=== PATIENT | female | born 1970 | race Two or more races ===

== ENCOUNTER 2018-11-21 19:21 | Emergency (ER) | payer MEDICAID ==
[~2018-11-21] VITALS: Ht 165.1 cm; Wt 79.0 kg
[2018-11-21 19:43] VITALS: BP 137/83
== END 2018-11-21 21:10 | disposition left against medical advice (07) ==
LOC: ER 19:21
DX: M25.561 Pain in right knee (principal); Z53.21 Procedure and treatment not carried out due to patient leaving prior to being seen by health care provider